=== PATIENT | female | born 1970 ===

== ENCOUNTER 2022-01-15 09:33 | Outpatient (CLI) | payer OTHER | END 2022-01-15 09:41 | disposition home or self-care (01) | LOC: RAD 09:33 | PROVIDERS: ATTEND General Practice | DX: Z20.1 Contact with and (suspected) exposure to tuberculosis (principal) ==

== ENCOUNTER 2022-06-26 13:57 | Outpatient (CLI) | payer OTHER | END 2022-06-26 14:11 | disposition home or self-care (01) | LOC: RAD 13:57 | DX: S52.502A Unspecified fracture of the lower end of left radius, initial encounter for closed fracture (principal) ==

== ENCOUNTER 2022-08-26 07:22 | Day surgery (SDC) | payer OTHER ==
[~2022-08-26] VITALS: Ht 157.5 cm; Wt 57.2 kg
[~2022-08-26 07:22] MED LIST: ZOCOR20 MG PO
== END 2022-08-26 16:45 | disposition home or self-care (01) ==
LOC: CIR.AMB 07:22
PROVIDERS: ATTEND Orthopaedic Surgery Hand Surgery
DX: S52.532A Colles' fracture of left radius, initial encounter for closed fracture (principal); E11.9 Type 2 diabetes mellitus without complications; E78.00 Pure hypercholesterolemia, unspecified; E78.3 Hyperchylomicronemia; I10 Essential (primary) hypertension; Z20.822 Contact with and (suspected) exposure to COVID-19
CPT/HCPCS: 25405; 25280; L8699

== ENCOUNTER 2022-09-09 08:48 | Outpatient (CLI) | payer OTHER | END 2022-09-09 09:02 | disposition home or self-care (01) | LOC: RAD 08:48 | PROVIDERS: ATTEND Orthopaedic Surgery Hand Surgery | DX: S52.532P Colles' fracture of left radius, subsequent encounter for closed fracture with malunion (principal) ==

== ENCOUNTER 2023-03-10 08:20 | Outpatient (CLI) | payer OTHER | END 2023-03-10 08:28 | disposition home or self-care (01) | LOC: RAD 08:20 | PROVIDERS: ATTEND Orthopaedic Surgery Hand Surgery | DX: S52.532P Colles' fracture of left radius, subsequent encounter for closed fracture with malunion (principal) ==